=== PATIENT | male | born 1965 | race Caucasian/White ===

== ENCOUNTER 2017-03-09 07:50 | Emergency (ER) | payer BC ==
[2017-03-09 07:56] VITALS: BP 123/75
[2017-03-09] MEDS ORDERED: Ibuprofen TAB* 600 MG PO ONE (08:11)
--- NOTE | 2017-03-09 08:42 | RAD ---
INDICATION: Left splinting, chest pain and chills. COMPARISON: Comparison is made with a prior chest x-ray study from December 09, 2014. TECHNIQUE: Dual-energy PA and lateral views of the chest were obtained. FINDINGS: The heart is within normal limits in size. Mediastinal and hilar contours appear within normal limits. There is atelectasis at both lung bases and a small patchy infiltrate in the left lower lobe. No pleural effusion is seen. IMPRESSION: SMALL LEFT BASILAR INFILTRATE.
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
[2017-03-09 12:16] LABS: Hematocrit 43 % (42-52); Hemoglobin 14.7 g/dl (14.0-18.0); Mean Corpuscular HGB Conc 34 g/dl (31-36); Mean Corpuscular Hemoglobin 30 pg (27-31); Mean Corpuscular Volume 89 fL (80-94); Mean Platelet Volume 8 um3 (7.4-10.4); Red Blood Count 4.87 10^6/ul (4.0-5.4); Red Cell Distribution Width 13 % (10.5-15); White Blood Count 12.2 10^3/ul (3.5-10.8)
[2017-03-09 12:27] LABS: BUN/Creatinine Ratio 14.9 (8-20); Calcium 9.2 mg/dL (8.6-10.3); EGFR African American 108.8 (>60); EGFR Non-African American 84.6 (>60); Globulin 3.2 g/dL (2-4); Total Bilirubin 1.5 mg/dL (0.2-1.0); Total Protein 7.2 g/dL (6.4-8.9)
--- NOTE | 2017-03-10 09:06 | UC ---
Progress - Progress Note Progress Note: D-DIMER NEGATIVE. CMP AND CBC WITH SLIGHT ABNORMALITIES LIKELY DUE TO ACUTE ILLNESS. CONTINUE CURRENT MGMT AND FOLLOW-UP WITH PCP. Re-Evaluation - Re-Evaluation First Eval Re-Evaluation Time: 08:45 Comment: Discussed imaging results with the pt, as well as pt's disposition.
== END 2017-03-09 09:04 | disposition home or self-care (01) ==
LOC: UCEAST 07:50
DX: J18.9 Pneumonia, unspecified organism (principal); R07.89 Other chest pain
CPT/HCPCS: 36415; 71020; 80053; 85025; 85379; 99212; A9270-GY; G0463

== ENCOUNTER 2019-03-02 07:27 | Emergency (ER) | payer BC ==
[2019-03-02 07:41] VITALS: BP 119/84
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
[2019-03-02] MEDS ORDERED: DOXYcycline CAP(*) 100 MG PO ONE (08:22)
[2019-03-02] MEDS ORDERED: Tetan/Diph/Pertus SYR(Tdap)* 0.5 ML SYR(BOOSTRIX) use SYR IM ONE (08:22)
== END 2019-03-02 08:55 | disposition home or self-care (01) ==
LOC: UCEAST 07:27
DX: S81.851A Open bite, right lower leg, initial encounter (principal); S30.861A Insect bite (nonvenomous) of abdominal wall, initial encounter; W54.0XXA Bitten by dog, initial encounter; W57.XXXA Bitten or stung by nonvenomous insect and other nonvenomous arthropods, initial encounter; Y92.9 Unspecified place or not applicable
CPT/HCPCS: 90471; 90715; 99212; A9270-GY; G0463

== ENCOUNTER 2021-03-17 09:47 | Inpatient (IN) ==
[2021-03-17 11:36] LABS: ABS Eosinophils 0.1 10^3/ul (0-0.6); ABS Lymphocytes 2.1 10^3/ul (1.0-4.8); ABS Monocytes 0.4 10^3/ul (0-0.8); Eosinophil % 1.5 %; Hematocrit 46 % (42-52); Hemoglobin 15.6 g/dL (14.0-18.0); Lymphocyte % 45.5 %; Mean Corpuscular HGB Conc 34 g/dL (31-36); Mean Corpuscular Hemoglobin 30 pg (27-31); Mean Corpuscular Volume 88 fL (80-94); Mean Platelet Volume 8.5 fL (7.4-10.4); Nucleated Red Blood Cells % 0.1; Platelet Count 291 10^3/uL (150-450); Red Blood Count 5.16 10^6 /uL (4.18-5.48); Red Cell Distribution Width 14 % (10-15); White Blood Count 4.6 10^3/uL (3.5-10.8)
[2021-03-17 11:53] LABS: ALT 13 U/L (7-52); AST 16 U/L (13-39); Albumin/Globulin Ratio 1.2 (1-3); Alkaline Phosphatase 141 U/L (35-149); Anion Gap 9 mmol/L (2-11); Blood Urea Nitrogen 17 mg/dL (6-24); CO2 Carbon Dioxide 20 mmol/L (22-32); Calcium 9.2 mg/dL (8.6-10.3); Chloride 104 mmol/L (101-111); EGFR African American 104.7 (>60); EGFR Non-African American 86.5 (>60); Globulin 3.4 g/dL (2-4); Glucose 118 mg/dL (70-100); Potassium 3.9 mmol/L (3.5-5.0); Sodium 133 mmol/L (135-145); Total Protein 7.4 g/dL (6.4-8.9)
[2021-03-17 11:54] LABS: Acetaminophen < 15 mcg/mL; Alcohol, S < 10 mg/dL (<10); Salicylate < 2.50 mg/dL (<30)
[2021-03-17 11:56] LABS: Urine Benzodiazepine Screen None Detected (None Detect); Urine Cannabinoids Screen Presumptive Positive (None Detect); Urine Opiates Screen None Detected (None Detect)
[2021-03-17 12:08] LABS: TSH Ultra Thyroid Stim Horm 0.82 mcIU/mL (0.34-5.60)
[2021-03-17] MEDS ORDERED: Al Hydrox/Mg Hydrox/Simet LIQ 30 ML UDC PO PRN (14:59)
[2021-03-19] MEDS ORDERED: Amphetamine/Dextroam ER 10(NF) 10 mg CAP.ER PO SCH (09:00)
[2021-03-21 08:31] LABS: HDL Cholesterol 38.9 mg/dL
[2021-03-21 08:39] VITALS: BP 119/92
== END 2021-03-21 15:00 | disposition home or self-care (01) | DRG 754 ==
LOC: ED 09:47 → BSU 21:10
PROVIDERS: ADMIT Psychiatry & Neurology Psychiatry; ATTEND Psychiatry & Neurology Psychiatry